=== PATIENT | female | born 1995 | race Caucasian/White ===

== ENCOUNTER 2017-06-13 02:00 | Inpatient (IN) | payer OTHER ==
[2017-06-13] MEDS ORDERED: Nalbuphine* 20 MG/ML 1 ML VIAL IV ONE (03:24)
[2017-06-13] MEDS ORDERED: Promethazine INJ(RESTRICTED)* 25 MG/ML 1 ML VIAL IV ONE (03:24)
[2017-06-13 09:21] LABS: Hematocrit 33 % (35-47); Mean Corpuscular HGB Conc 33 g/dl (31-36); Mean Corpuscular Hemoglobin 28 pg (27-31); Mean Corpuscular Volume 86 fL (80-97); Mean Platelet Volume 9 um3 (7.4-10.4); Red Blood Count 3.87 10^6/ul (4.0-5.4); Red Cell Distribution Width 13 % (10.5-15); White Blood Count 15.2 10^3/ul (3.5-10.8)
[2017-06-13] MEDS ORDERED: OBEPIDURAL* 250 ML ONE (09:35)
[2017-06-13] MEDS ORDERED: Witch Hazel PAD* JAR TOPICAL PRN (15:22)
[2017-06-13] MEDS ORDERED: Glycerin ADULT SUPP PR PRN (15:22)
[2017-06-13] MEDS ORDERED: Dibucaine 1% 28.35 GM TUBE PR PRN (15:22)
[2017-06-13] MEDS ORDERED: Acetaminophen TAB* 325 MG PO PRN (15:22)
[2017-06-13] MEDS: Ibuprofen TAB* 600 MG PO PRN (15:58)
[2017-06-13] MEDS ORDERED: Simethicone TAB* 80 MG TAB.CHEW PO SCH (17:30)
[2017-06-13] MEDS: Docusate CAP* 100 MG PO SCH (21:09)
[2017-06-14] MEDS: Docusate CAP* 100 MG PO SCH ×3 (08:19→19:49)
[2017-06-14] MEDS: Ibuprofen TAB* 600 MG PO PRN ×3 (08:20→19:48)
[2017-06-14] MEDS ORDERED: Ferrous Gluconate TAB* 324 MG TAB PO SCH (09:00)
[2017-06-14 09:29] LABS: Hematocrit 32 % (35-47); Hemoglobin 10.6 g/dl (12.0-16.0); Mean Corpuscular HGB Conc 33 g/dl (31-36); Mean Corpuscular Hemoglobin 28 pg (27-31); Mean Corpuscular Volume 85 fL (80-97); Mean Platelet Volume 8 um3 (7.4-10.4); Red Blood Count 3.79 10^6/ul (4.0-5.4); Red Cell Distribution Width 13 % (10.5-15); White Blood Count 14.2 10^3/ul (3.5-10.8)
[2017-06-15] MEDS: Ibuprofen TAB* 600 MG PO PRN (06:12)
[2017-06-15 08:14] VITALS: BP 114/79
[2017-06-15] MEDS: Docusate CAP* 100 MG PO SCH (10:17)
== END 2017-06-15 12:15 | disposition home or self-care (01) | DRG 775 ==
LOC: MCHOBOUT 02:00 → MCHOB 08:18
PROVIDERS: ADMIT Midwife; ATTEND Midwife
PROC: 10907ZC Drainage of Amniotic Fluid, Therapeutic from Products of Conception, Via Natural or Artificial Opening (ICD-10-PCS; principal; 2017-06-13)
PROC: 10E0XZZ Delivery of Products of Conception, External Approach (ICD-10-PCS; 2017-06-13)
PROC: 4A1HX4Z Monitoring of Products of Conception, Cardiac Electrical Activity, External Approach (ICD-10-PCS; 2017-06-13)
DX: O71.89 Other specified obstetric trauma (principal); Z37.0 Single live birth; Z3A.39 39 weeks gestation of pregnancy
CPT/HCPCS: 36415; 76815; 85025; 86850; 86900; 86901; A9270-GY; J2300; J2550